=== PATIENT | female | born 1995 | race Caucasian/White ===

== ENCOUNTER 2023-09-02 13:09 | Emergency (ER) | payer OTHER ==
[2023-09-02 13:32] VITALS: BP 154/101; O2SAT 99
[2023-09-02 14:05] LABS: BASOPHILS # (AUTO) 0.1 10^3/uL (0.0-0.1); BASOPHILS % (AUTO) 1.1 %; EOSINOPHILS % (AUTO) 0.5 %; HCT - HEMATOCRIT 41.6 % (37.0-47.0); HGB - HEMOGLOBIN 13.9 g/dL (12.0-16.0); LYMPHOCYTES # (AUTO) 1.2 10^3/uL (1.5-3.5); LYMPHOCYTES % (AUTO) 18.5 %; MEAN CORPUSCULAR HEMOGLOBIN 29.5 pg (27.0-31.0); MEAN CORPUSCULAR HGB CONC 33.4 g/dL (32.0-36.0); MEAN CORPUSCULAR VOLUME 88.3 fL (81.0-99.0); MEAN PLATELET VOLUME 12.5 fL (7.9-10.8); MONOCYTES # (AUTO) 0.4 10^3/uL (0.0-1.0); MONOCYTES % (AUTO) 5.8 %; NEUTROPHILS # (AUTO) 4.8 10^3/uL (1.5-6.6); NEUTROPHILS % (AUTO) 73.9 %; PLT - PLATELET COUNT 244 10^3/uL (130-450); RED BLOOD COUNT 4.71 10^6/uL (4.20-5.40); RED CELL DISTRIBUTION WIDTH 12.1 % (12.0-15.0); WHITE BLOOD COUNT 6.4 x10^3/uL (4.8-10.8)
[2023-09-02 14:24] LABS: ALBUMIN 5.2 g/dL (3.2-5.5); ALBUMIN/GLOBULIN RATIO 1.9 (1.0-2.2); ALKALINE PHOSPHATASE 48 IU/L (42-121); ALT ALANINE AMINOTRANSFERASE 13 IU/L (10-60); AST ASPARTATE AMINOTRANSFERASE 17 IU/L (10-42); BILIRUBIN,TOTAL 0.7 mg/dL (0.2-1.0); BUN - BLOOD UREA NITROGEN 12 mg/dL (6-20); CALCIUM 9.9 mg/dL (8.5-10.3); CARBON DIOXIDE - CO2 24 mmol/L (21-32); CHLORIDE 104 mmol/L (101-111); CREATININE 0.7 mg/dL (0.6-1.3); GFR - MDRD 101 (>89); GLUCOSE 87 mg/dL (74-104); LIPASE 10 U/L (11-82); POTASSIUM 3.6 mmol/L (3.5-4.5); SODIUM 138 mmol/L (135-145); TOTAL PROTEIN 7.9 g/dL (6.4-8.9)
[2023-09-02 14:25] LABS: TROPONIN I HIGH SENSITIVITY < 2.3 ng/L (2.3-14.8)
--- NOTE | 2023-09-02 14:32 | XRAY Report ---
PROCEDURE: Chest 1 View X-Ray INDICATIONS: Chest Pain TECHNIQUE: One view of the chest was acquired. COMPARISON: None. FINDINGS: Surgical changes and devices: None. Lungs and pleura: No pleural effusions or pneumothorax. Lungs are clear. Mediastinum: Mediastinal contours appear normal. Heart size is normal. Bones and chest wall: No suspicious bony lesions. Overlying soft tissues appear unremarkable. IMPRESSION: No acute cardiopulmonary process. Reviewed by: Ger Wallace on 09/02/2023 2:30 PM PDT Approved by: Ger Wallace on 09/02/2023 2:30 PM PDT Station ID: [id number]
--- NOTE | 2023-09-02 14:57 | ED Physician Documentation ---
PD HPI CHEST PAIN - Stated complaint Stated Complaint: CP/HEART FLUTTERS - Chief complaint Chief Complaint: Cardiac - History obtained from History obtained from: Patient - Additional information Additional information: Sharp CP at R costochondral joint. Started while picking something up while bending 2 days ago and persistent. Worse with deep breathing. No soa per se. No leg pain, swelling, ocp use, travel or fhx early cad. PD PAST MEDICAL HISTORY - Allergies Allergies/Adverse Reactions: Allergies Allergy/AdvReac Type Severity Reaction Status Date / Time No Known Drug Allergies Allergy Verified 09/02/23 13:30 PD ED PE NORMAL - Vitals Vital signs reviewed: Yes - General General: Alert and oriented X 3, No acute distress - Neck Neck: Supple, no meningeal sign - Cardiac Cardiac: RRR, No murmur, Other (reproducible ttp R upper costochondral joints.) - Respiratory Respiratory: No respiratory distress, Clear bilaterally - Abdomen Abdomen: Non tender - Extremities Extremities: No edema, No calf tenderness / cord - Neuro Neuro: Alert and oriented X 3, Normal speech - Psych Psych: Normal affect Results - Vitals Vitals: Vital Signs - 24 hr 09/02/23 13:27 Temperature 37.1 C Heart Rate 78 Respiratory 18 Rate Blood Pressure 154/101 H O2 Saturation 99 Oxygen O2 Source Room air - EKG (time done) 1331 EKG releavant findings:: EKG personally interpreted by author of this note. Relevant findings are: Rate: Rate (enter#) (71) Rhythm: NSR [place]: Normal Intervals: Normal CT QRS: Normal Ischemia: Normal ST segments - Labs Labs: Laboratory Tests 09/02/23 09/02/23 09/02/23 14:00 14:00 14:00 WBC 6.4 RBC 4.71 Hgb 13.9 Hct 41.6 MCV 88.3 MCH 29.5 MCHC 33.4 RDW 12.1 Plt Count 244 MPV 12.5 H Neut # (Auto) 4.8 Lymph # (Auto) 1.2 L [place] # (Auto) 0.4 Eos # (Auto) 0.0 Baso # (Auto) 0.1 Absolute Nucleated RBC 0.00 Nucleated RBC % 0.0 D-Dimer < 200.0 L Sodium 138 Potassium 3.6 Chloride 104 Carbon Dioxide 24 Anion Gap 10.0 BUN 12 Creatinine 0.7 Estimated GFR (MDRD) 101 Glucose 87 Calcium 9.9 Total Bilirubin 0.7 AST 17 ALT 13 Alkaline Phosphatase 48 Troponin I High Sens < 2.3 L Total Protein 7.9 Albumin 5.2 Globulin 2.7 Albumin/Globulin Ratio 1.9 Lipase 10 L PD Medical Decision Making - ED course ED course: Heart score 0, PERC negative but had D-dimer ordered at triage which was negative as well. CBC and CMP normal with negative troponin. Clinically this is consistent with costochondritis and NSAID use was encouraged. Departure - Departure Disposition: 01 Home, Self Care Clinical Impression: Costochondritis, acute Condition: Good Record reviewed to determine appropriate education?: Yes Instructions: ED Chest Pain Costochondritis Comments: Motrin or aleve per package instructions for pain. Return if worse, followup tih you primary MD in 1 week. Testing included normal EKG, chest xray, d-dimer (screen for clots), troponin (screen for heart attack). Forms: PCP List Discharge Date/Time: 09/02/23 15:12
== END 2023-09-02 15:12 | disposition home or self-care (01) ==
LOC: ED 13:09
DX: M94.0 Chondrocostal junction syndrome [Tietze] (principal)
CPT/HCPCS: 36415; 80053; 83690; 84484; 85025; 85379; 93005; 99283; 99284

== ENCOUNTER 2023-12-09 12:54 | Outpatient (CLI) | payer OTHER ==
[2023-12-09 13:41] LABS: THYROID STIMULATING HORMONE 4.39 uIU/mL (0.34-5.60)
== END 2023-12-09 12:55 | disposition home or self-care (01) ==
LOC: LAB 12:54
PROVIDERS: ATTEND Nurse Practitioner
DX: E03.9 Hypothyroidism, unspecified (principal)
CPT/HCPCS: 36415; 84439; 84443; 84481

== ENCOUNTER 2023-12-30 13:19 | Outpatient (CLI) | payer OTHER ==
--- NOTE | 2023-12-30 15:41 | Ultrasound Report ---
PROCEDURE: Pelvic w/Transvaginal INDICATIONS: MENORRHAGIA TECHNIQUE: Real-time scanning was performed of the pelvic organs, with image documentation. Additional endovagi nal scanning was necessary due to incomplete visualization of the adnexal and endometrial structures by transabdominal scanning. COMPARISON: None. FINDINGS: Uterus: Uterus is anteverted and normal in size at 8.9 x 3.4 x 4.9 cm. The myometrium is homogeneou s. The endometrium measures 12.6 mm in combined thickness. Ovaries: The right ovary measures 4.2 x 2.4 x 2.1 cm, with a calculated ovarian volume of 10.8 cc. The left ovary measures 3.6 x 1.8 x 1.8 cm, with a calculated ovarian volume of 6.2 cc. The ovaries have a normal sonographic appearance. Less than 12 follicles can be seen in each ovary. No adnexal masses are seen. No cystic lesions measuring greater than 3 cm. Simple cyst in the right ovary measur ing 2.2 x 1.5 x 1.9 cm. Other: No pathologic free abdominal or pelvic fluid. IMPRESSION: Normal sonographic appearance of the uterus and endometrial thickness. Normal sonographic appearance the bilateral ovaries. Reviewed by: Elle Herrera MD on 12/30/2023 3:40 PM PST Approved by: Elle Herrera MD on 12/30/2023 3:40 PM PST Station ID: [id number]
== END 2023-12-30 13:20 | disposition home or self-care (01) ==
LOC: DI 13:19
PROVIDERS: ATTEND Nurse Practitioner
DX: N92.0 Excessive and frequent menstruation with regular cycle (principal)

== ENCOUNTER 2024-02-02 11:14 | Outpatient (CLI) | payer OTHER ==
--- NOTE | 2024-02-02 20:47 | Ultrasound Report ---
PROCEDURE: OB 1st Trimester w/TV INDICATIONS: POSITIVE TEST OUTSIDE/PRIOR DATING DATA: Last menstrual period (LMP): 12/02/2023. LMP-based estimated date of delivery (MONA): 09/07/2024. First dating scan (date and location): 02/02/2024. Estimated date of delivery (MONA) from first dating scan: 09/25/2024. TECHNIQUE: Real-time scanning was performed of the fetus and maternal pelvic organs, with image documentation. Endovaginal scanning was also performed to better visualize the fetus and maternal ovaries. COMPARISON: None. FINDINGS: Intrauterine gestational sac present. Mean gestational sac diameter: 1.6 cm, 6 weeks and 3 days [place]-rump length: 0.5 cm, 6 weeks and 2 days A yolk sac is present measuring 0.2 cm Heart rate: 126 bpm. Other: No perigestational fluid collection Measurement variability in dating: +/- 4 weeks by LMP, +/- 7 days by mean sac diameter (use before 6 weeks gestation if crown-rump length not able to be measured), +/- 5 days by crown-rump length (6-12 weeks gestation). Maternal organs: Ovaries appear within normal limits. Right corpus luteal cyst measuring 1 x 0.9 x 1 cm. IMPRESSION: Single living intrauterine . Estimated gestational age based on today's ultrasound is 6 week s and 2 days. Reviewed by: Brian Aldrich MD on 02/02/2024 8:46 PM PDT Approved by: Brian Aldrich MD on 02/02/2024 8:46 PM PDT Station ID: [id number]
== END 2024-02-02 11:15 | disposition home or self-care (01) ==
LOC: DI 11:14
PROVIDERS: ATTEND Nurse Practitioner
DX: Z34.91 Encounter for supervision of normal pregnancy, unspecified, first trimester (principal)

== ENCOUNTER 2024-02-25 08:00 | Outpatient (CLI) | payer OTHER ==
[2024-02-25 18:57] LABS: CHLAMYDIA TRACHOMATIS DNA NEGATIVE (NEGATIVE); NEISSERIA GONORRHOEAE DNA NEGATIVE (NEGATIVE); TRICHOMONAS VAGINALIS DNA NEGATIVE (NEGATIVE)
== END 2024-02-25 23:59 | disposition home or self-care (01) ==
LOC: LAB.WC 08:00
PROVIDERS: ATTEND Nurse Practitioner
DX: Z11.3 Encounter for screening for infections with a predominantly sexual mode of transmission (principal)
CPT/HCPCS: 87491; 87591; 87661

== ENCOUNTER 2024-03-07 12:54 | Outpatient (CLI) | payer OTHER ==
[2024-03-07 14:09] LABS: THYROID STIMULATING HORMONE 3.81 uIU/mL (0.34-5.60)
== END 2024-03-07 12:55 ==
LOC: LAB 12:54
PROVIDERS: ATTEND Nurse Practitioner
DX: E03.9 Hypothyroidism, unspecified (principal)
CPT/HCPCS: 36415; 84443

== ENCOUNTER 2024-03-18 18:40 | Outpatient (CLI) | payer OTHER | END 2024-03-18 18:41 | disposition home or self-care (01) | LOC: LAB 18:40 | PROVIDERS: ATTEND Nurse Practitioner | DX: Z34.90 Encounter for supervision of normal pregnancy, unspecified, unspecified trimester (principal) ==

== ENCOUNTER 2024-04-09 16:40 | Outpatient (CLI) | payer OTHER ==
[2024-04-09 17:40] LABS: THYROID STIMULATING HORMONE 3.95 uIU/mL (0.34-5.60)
== END 2024-04-09 16:41 | disposition home or self-care (01) ==
LOC: LAB 16:40
PROVIDERS: ATTEND Nurse Practitioner
DX: E03.9 Hypothyroidism, unspecified (principal)
CPT/HCPCS: 36415; 84443

== ENCOUNTER 2024-05-10 17:35 | Outpatient (CLI) | payer OTHER ==
[2024-05-10 18:16] LABS: THYROID STIMULATING HORMONE 1.77 uIU/mL (0.34-5.60)
== END 2024-05-10 17:36 | disposition home or self-care (01) ==
LOC: LAB 17:35
PROVIDERS: ATTEND Obstetrics & Gynecology
DX: O99.282 Endocrine, nutritional and metabolic diseases complicating pregnancy, second trimester (principal); E06.3 Autoimmune thyroiditis; O09.892 Supervision of other high risk pregnancies, second trimester
CPT/HCPCS: 36415; 84439; 84443

== ENCOUNTER 2024-06-21 12:23 | Outpatient (CLI) | payer OTHER ==
[2024-06-21 13:39] LABS: HCT - HEMATOCRIT 35.6 % (37.0-47.0); HGB - HEMOGLOBIN 11.9 g/dL (12.0-16.0); MEAN CORPUSCULAR HEMOGLOBIN 30.4 pg (27.0-31.0); MEAN CORPUSCULAR HGB CONC 33.4 g/dL (32.0-36.0); MEAN CORPUSCULAR VOLUME 90.8 fL (81.0-99.0); PLT - PLATELET COUNT 162 10^3/uL (130-450); RED BLOOD COUNT 3.92 10^6/uL (4.20-5.40); RED CELL DISTRIBUTION WIDTH 13.1 % (12.0-15.0); WHITE BLOOD COUNT 9.5 x10^3/uL (4.8-10.8)
[2024-06-21 14:08] LABS: THYROID STIMULATING HORMONE 1.17 uIU/mL (0.34-5.60)
== END 2024-06-21 12:24 | disposition home or self-care (01) ==
LOC: LAB 12:23
PROVIDERS: ATTEND Obstetrics & Gynecology
DX: O09.892 Supervision of other high risk pregnancies, second trimester (principal); O99.282 Endocrine, nutritional and metabolic diseases complicating pregnancy, second trimester; E06.3 Autoimmune thyroiditis
CPT/HCPCS: 36415; 82950; 84439; 84443; 85027; 86592

== ENCOUNTER 2024-08-03 15:24 | Outpatient (CLI) | payer OTHER ==
--- NOTE | 2024-08-06 00:03 | Ultrasound Report ---
PROCEDURE: OB Follow up INDICATIONS: SUPERVISION OF OUTSIDE/PRIOR DATING DATA: Last menstrual period (LMP): 12/02/2023. LMP-based estimated date of delivery (MONA): 09/07/2024. First dating scan (date and location): 02/02/2024. Estimated date of delivery (MONA) from first dating scan: 09/25/2024. The below data below was generated using the working MONA of 09/25/2024 TECHNIQUE: Ultrasound of the gravid uterus was performed and recorded. COMPARISON: None. FINDINGS: General: A single live intrauterine gestation is present. Presentation: Vertex Placenta: Placental position is fundal without previa. Amniotic fluid index: 10.6 cm, within normal limits for gestational age. heart rate: 157 beats per minute. Maternal cervical canal: 3.7 cm long; normal length is 2.5 cm or more. biometrics: Biparietal diameter: 7.9 cm, 32 week 0 day, 28.9 percentile Head circumference: 29.62 cm, 32 week 2 day, 12.5% Abdominal circumference: 27.7 cm, 31 week 6 day, 31% Femur length: 6.2 cm, 32 week 1 day, 30% Estimated gestational age by working dates: 32 week 3 day Composite gestational age by current ultrasound: 32 week 1 day Estimated weight and percentile: 1879.4 g, 26.6% Measurement variability in biometric dating: +/- 10 days from 12-20 weeks gestation, +/- 2 weeks from 20-30 weeks gestation, +/- 3 weeks at 30 weeks gestation or more. Other: Not applicable. IMPRESSION: Single live intrauterine consistent with 32 week 3 day gestation by current ultrasound Reviewed by: Shivam Braxton MD on 08/05/2024 11:02 PM SONYA Approved by: Shivam Braxton MD on 08/05/2024 11:02 PM SONYA Station ID: [id number]
== END 2024-08-03 15:25 | disposition home or self-care (01) ==
LOC: DI 15:24
PROVIDERS: ATTEND Obstetrics & Gynecology
DX: O09.893 Supervision of other high risk pregnancies, third trimester (principal); O35.9XX0 Maternal care for (suspected) fetal abnormality and damage, unspecified, not applicable or unspecified; Z3A.32 32 weeks gestation of pregnancy

== ENCOUNTER 2024-08-26 14:50 | Observation (INO) ==
[2024-08-26 15:30] LABS: BASOPHILS # (AUTO) 0.1 10^3/uL (0.0-0.1); BASOPHILS % (AUTO) 0.5 %; EOSINOPHILS % (AUTO) 0.3 %; HGB - HEMOGLOBIN 12.3 g/dL (12.0-16.0); LYMPHOCYTES # (AUTO) 1.8 10^3/uL (1.5-3.5); LYMPHOCYTES % (AUTO) 16.2 %; MEAN CORPUSCULAR HEMOGLOBIN 30.4 pg (27.0-31.0); MEAN CORPUSCULAR HGB CONC 34.2 g/dL (32.0-36.0); MEAN CORPUSCULAR VOLUME 89.1 fL (81.0-99.0); MEAN PLATELET VOLUME 14.2 fL (7.9-10.8); MONOCYTES # (AUTO) 0.7 10^3/uL (0.0-1.0); MONOCYTES % (AUTO) 5.9 %; NEUTROPHILS # (AUTO) 8.3 10^3/uL (1.5-6.6); NEUTROPHILS % (AUTO) 76.1 %; PLT - PLATELET COUNT 169 10^3/uL (130-450); RED BLOOD COUNT 4.04 10^6/uL (4.20-5.40); RED CELL DISTRIBUTION WIDTH 13.3 % (12.0-15.0)
[2024-08-26 15:49] LABS: SLIDE REVIEW? Indicated
[2024-08-26 16:00] LABS: PROTEIN/CREATININE RATIO,URINE 1.1 (<=0.2)
[2024-08-26 16:05] LABS: THYROID STIMULATING HORMONE 3.29 uIU/mL (0.34-5.60)
[2024-08-26 16:13] LABS: ALBUMIN 3.7 g/dL (3.2-5.5); ALBUMIN/GLOBULIN RATIO 1.3 (1.0-2.2); BILIRUBIN,TOTAL 0.4 mg/dL (0.2-1.0); CALCIUM 9.3 mg/dL (8.5-10.3); CREATININE 0.5 mg/dL (0.6-1.3); TOTAL PROTEIN 6.6 g/dL (6.4-8.9); URIC ACID 5.4 mg/dL (2.3-6.6)
[2024-08-26 16:36] LABS: PLATELET ESTIMATE, MANUAL NORMAL (130-450,000) (NORMAL); PLATELET MORPHOLOGY NORMAL APPEARANCE (NORMAL); RBC MORPHOLOGY (MULTIPLE) NORMAL APPEARANCE (NORMAL)
[2024-08-26] MEDS ORDERED: OXYTOCIN 10 UNIT/ML VIAL IM PRN (16:47)
[2024-08-26] MEDS ORDERED: lidocaine 1% 20 ML MDV ID PRN (16:47)
[2024-08-26] MEDS ORDERED: LABETALOL 20 MG/4 ML SYRINGE IVP PRN ×3 (16:47)
[2024-08-26] MEDS ORDERED: LACTATED RINGERS 1,000 ML IV PRN (16:47)
[2024-08-26] MEDS ORDERED: miSOPROStoL 200 MCG TABLET BC PRN (16:47)
[2024-08-26] MEDS ORDERED: hydrALAZINE INJ 20 MG/ML VIAL IVP PRN ×2 (16:47)
[2024-08-26] MEDS ORDERED: fentaNYL 100 MCG/2 ML VIAL IVP PRN (16:47)
[2024-08-26] MEDS ORDERED: OXYTOCIN/SODIUM CHLORIDE 500 ML IV PRN (16:47)
[2024-08-26] MEDS ORDERED: CARBOPROST TROMETHAMINE 250 MCG/ML VIAL IM PRN (16:47)
[2024-08-26] MEDS ORDERED: TERBUTALINE 1 MG/ML VIAL SUBQ PRN (16:47)
[2024-08-26] MEDS ORDERED: miSOPROStoL 200 MCG TABLET PR PRN (16:47)
[2024-08-26] MEDS ORDERED: NIFEdipine 10 MG CAPSULE PO PRN (16:47)
[2024-08-26] MEDS ORDERED: SODIUM CHLORIDE FLUSH 0.9% 10 ML SYRINGE IVP PRN (16:47)
[2024-08-26] MEDS ORDERED: TRANEXAMIC ACID IN NACL 1,000 MG/100 ML BAG IV PRN (16:47)
[2024-08-26] MEDS ORDERED: ACETAMINOPHEN 500 MG TABLET PO PRN (16:52)
[2024-08-26 16:56] VITALS: BP 145/85
[2024-08-26] MEDS ORDERED: METOCLOPRAMIDE 10 MG/2 ML VIAL IVP PRN (16:57)
[2024-08-26] MEDS ORDERED: DOCUSATE SODIUM 100 MG CAPSULE PO PRN (16:57)
[2024-08-26] MEDS ORDERED: METOCLOPRAMIDE 10 MG TABLET PO PRN (16:57)
[2024-08-26] MEDS ORDERED: CALCIUM CARBONATE CHEW 500 MG TABLET PO PRN (16:57)
[2024-08-26] MEDS ORDERED: diphenhydrAMINE INJ 50 MG/ML VIAL IVP PRN (16:57)
[2024-08-26] MEDS ORDERED: ONDANSETRON ODT 4 MG TABLET PO PRN (16:57)
--- NOTE | 2024-08-26 17:12 | HISTORY & PHYSICAL EXAMINATION ---
Admit History Visit Reason Visit Reason: Other (presents with elevated bps in clinic, swelling. 35w5d.) : 1 Care: positive [facility] Risk/History: positive Pre-eclampsia (just starting today) and Other (hypothyroid on levothyroxine. 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 echo 05/25 normal) Smoking Status: Never smoker Mother's Labs Mother's Blood Type: positive O Mother's RH: positive Positive GBS: positive Other (collect today) Rubella Status: positive Immune HPI Diagnosis/Indication for NST: Gestational Hypertension NST Procedure NST Procedure: NST is reactive with at least 2 15 x 51 beat acels in 20 minutes. moderate variability. baseline 140, obsessional scattered carrot decels. Results and Plan Findings/Impression: reactive NST Meds/Allgy Home Medications Ambulatory Orders Medication Instructions Recorded Confirmed [id number] 400 mcg-om3 35 mg-dha 25 1 tab PO DAILY 08/26/24 08/26/24 mg-epa 5 mg-fish oil chewable tablet levothyroxine 100 mcg tablet 100 mcg PO DAILY 08/26/24 08/26/24 (Euthyrox) Allergies Allergies Allergy/AdvReac Type Severity Reaction Status Date / Time No Known Drug Allergies Allergy Verified 08/26/24 16:57 Physical Abdominal Exam Vital Signs: see RN notes Contraction Frequency (min/apart): very irregular. Contraction Intensity: positive Mild Uterine Resting Tone: positive Soft Monitoring Heart Rate Baseline: 140 Strip Review: positive Category I Vaginal Exam Membranes: positive Membranes intact Dilation (in cm): deferred Speculum Exam Speculum Exam Performed: positive No Plan for Labor Plan For Labor I expect patient to be DC'd or transferred within 96 hours.: Yes Review of Systems Constitutional Reports: Change in sleep pattern; Denies: Fever or Chills Eyes Denies: Blurry vision or Floaters Cardiovascular Reports: swelling of feet/ankles; Denies: Irregular heart rate or shortness of breath with exertion Respiratory Denies: Shortness of breath Gastrointestinal Reports: Vomiting; Denies: Abdominal pain or Nausea Genitourinary Denies: Blood in urine or Vaginal bleeding Integumentary/Breast Denies: Rash or Itching Neurological Denies: Headache, General weakness or Focal weakness PFSH Social History Social History Smoking Status: Never smoker Do you dip or chew tobacco?: No Patient requests smoking cessation consult: No Initiate information on smoking cessation: No Do you feel safe in your home environment?: Yes Suffered physical, verbal, emotional, or financial abuse?: No Conclusion/Plan Problem List (1) with 35 completed weeks gestation: (2) Pre-eclampsia affecting , antepartum: Plan admit for observation and watch for severe features. meets criteria for preeclampsia by bp and urine protein. no severe features at this time. other labs normal. No symptoms of severe features. will monitor baby given some variable decels. Do ultrasound today to check growth and fluid. recheck labs in am. For now, hope to be able to wait for delivery until 37 weeks but if she develops severe features will start magnesium seizure prophylaxis and start induction process if she seems she will deliver after 36 weeks. Otherwise, transfer to appropriate facility for baby. collect GBS today. Lab Results Lab results reviewed: Yes 08/26/24 15:17 08/26/24 15:17 Other Lab Results: urine protein creatinine ratio is 1.1 Exam Physical Exam General Appearance: positive No acute distress and Alert Respiratory: positive No respiratory distress Cardiovascular: positive Regular rate & rhythm Abdomen: positive Non-tender Skin: positive Color nml Extremities: positive Pedal edema (to mid calf); negative Calf tenderness or Anita's sign/cords Neurologic/Psychiatric: positive Oriented x3
[2024-08-26 18:21] LABS: BILIRUBIN,URINE NEGATIVE (NEGATIVE); GLUCOSE, URINE (UA) NEGATIVE (NEGATIVE); KETONES,URINE (UA) 15 mg/dL (NEGATIVE); LEUKOCYTE ESTERASE, URINE NEGATIVE (NEGATIVE); NITRITE,URINE NEGATIVE (NEGATIVE); OCCULT BLOOD,URINE NEGATIVE (NEGATIVE); PROTEIN,URINE TRACE mg/dL (NEGATIVE); UROBILINOGEN,URINE 0.2 (NORMAL) E.U./dL (NORMAL)
[2024-08-26 18:23] LABS: CLARITY,URINE CLEAR (CLEAR)
[2024-08-26] MEDS: ENOXAPARIN 40 MG/0.4 ML SYRINGE SUBQ SCH (23:09)
[2024-08-26] MEDS: SODIUM CHLORIDE FLUSH 0.9% 10 ML SYRINGE IVP SCH (23:12)
--- NOTE | 2024-08-26 23:27 | Ultrasound Report ---
PROCEDURE: US OB Follow up INDICATIONS: preeclampsia, check growth and fluid. 35 w 5 d OUTSIDE/PRIOR DATING DATA: Last menstrual period (LMP): 12/02/2023. LMP-based estimated date of delivery (MONA): 09/07/2024. First dating scan (date and location): 02/02/2024. Estimated date of delivery (MONA) from first dating scan: 09/25/2024. The below data below was generated using the working MONA of 09/25/2024 TECHNIQUE: Real-time scanning was performed of the fetus, with image documentation and biometric measurements. Endovaginal scanning: Not performed. COMPARISON: 02/02/2024, 08/03/2024 FINDINGS: General: A single living intrauterine gestation is present. Presentation: Vertex Placenta: Placental position is fundal posterior, without previa. Amniotic fluid index: 13.5 cm, 46.2% and is within normal limits for gestational age. heart rate: 140 beats per minute. Maternal cervical canal: Not well seen. biometrics: Biparietal diameter: 8.56 cm, 34 weeks, 4 days, 22.6%. Head circumference: 32.29 cm, 36 weeks, 3 days, 36.8% Abdominal circumference: 30.39 cm, 34 weeks, 2 days, 21.0% Femur length: 6.65 cm, 34 weeks, 2 days, 11.8% Estimated gestational age from initial scan: 35 weeks, 5 days Composite gestational age from present scan: 34 weeks, 6 days Estimated weight and percentile: 2457.5 g, 20% Measurement variability in biometric dating: +/- 10 days from 12-20 weeks gestation, +/- 2 weeks from 20-30 weeks gestation, +/- 3 weeks at 30 weeks gestation or more. Other: Not applicable. IMPRESSION: 1. Single live intrauterine gestation with fetus in vertex presentation. heart rate is 140 bpm. Normal [place] at 13.5 cm and is at 46.2%. 2. Normal growth. Estimated weight is at 20%. Reviewed by: Estiven Bellamy MD on 08/26/2024 11:25 PM PDT Approved by: Estiven Bellamy MD on 08/26/2024 11:25 PM PDT Station ID: [id number]
[2024-08-27 06:19] LABS: BASOPHILS # (AUTO) 0.1 10^3/uL (0.0-0.1); HCT - HEMATOCRIT 34.2 % (37.0-47.0); HGB - HEMOGLOBIN 11.3 g/dL (12.0-16.0); LYMPHOCYTES # (AUTO) 1.6 10^3/uL (1.5-3.5); MEAN CORPUSCULAR HEMOGLOBIN 29.6 pg (27.0-31.0); MEAN CORPUSCULAR VOLUME 89.5 fL (81.0-99.0); MONOCYTES # (AUTO) 0.6 10^3/uL (0.0-1.0); MONOCYTES % (AUTO) 7.5 %; NEUTROPHILS # (AUTO) 5.5 10^3/uL (1.5-6.6); PLT - PLATELET COUNT 147 10^3/uL (130-450); RED BLOOD COUNT 3.82 10^6/uL (4.20-5.40); RED CELL DISTRIBUTION WIDTH 13.2 % (12.0-15.0)
[2024-08-27 06:36] LABS: LYMPHOCYTES % (AUTO) 21.2 %; NEUTROPHILS % (AUTO) 70.6 %; WHITE BLOOD COUNT 7.3 x10^3/uL (4.8-10.8)
[2024-08-27 06:39] LABS: ALBUMIN 3.4 g/dL (3.2-5.5); ALBUMIN/GLOBULIN RATIO 1.2 (1.0-2.2); BILIRUBIN,TOTAL 0.3 mg/dL (0.2-1.0); CALCIUM 8.8 mg/dL (8.5-10.3); CREATININE 0.5 mg/dL (0.6-1.3); TOTAL PROTEIN 6.2 g/dL (6.4-8.9)
[2024-08-27] MEDS ORDERED: ENOXAPARIN 40 MG/0.4 ML SYRINGE SUBQ SCH (09:00)
[2024-08-27] MEDS: LEVOTHYROXINE 100 MCG TABLET PO SCH (10:33)
[2024-08-27] MEDS: PRENATAL VITAMIN TABLET PO SCH (10:33)
[2024-08-27] MEDS: FAMOTIDINE 20 MG/2 ML VIAL IVP SCH (11:44)
[2024-08-27] MEDS: LABETALOL 100 MG TABLET PO SCH (11:57)
--- NOTE | 2024-08-27 15:03 | PHARMACY PROGRESS NOTE ---
Best Possible Medication History Admit Date and Time: 08/26/24 1650 BPM Statement: Per [employer] records and pt interview (PhT) As the person ultimately responsible for medication therapy, providers are able to order a medication from an existing home medication list in [facility] via the "Reconcile Routine" prior to Confirmation of that medication by support architect. Such practice is discouraged except when the physician, in their clinical judgment, deems that a medical need exists for a medication without regard to previous use.
--- NOTE | 2024-08-27 15:26 | Discharge Summary ---
Discharge Summary Admit Date: 08/26/24 Discharge Date: 08/27/24 Discharging Provider: Linnea Lopes MD Primary Care Provider: Loraine Pearce Code Status: Attempt Resuscitation DIAGNOSES Admission Diagnoses: prenancy at 35w6d with preeclampsia without severe features. Discharge Diagnoses with Status of Each Condition: same. stable HPI History of Present Illness: came to office for normal visit and had elevated bp. sent to [facility] for eval. HOSPITAL COURSE Hospital Course: observed overnight with multiple bp checks. did not escalate. US done and normal growth and fluid. NSTs reactive. started on labetolol 100 mg bid. ALLERGIES Allergies Allergy/AdvReac Type Severity Reaction Status Date / Time No Known Drug Allergies Allergy Verified 08/26/24 16:57 MEDICATIONS Ambulatory Orders Medication Instructions Recorded Confirmed [id number] 400 mcg-om3 35 mg-dha 25 1 tab PO DAILY 08/26/24 08/26/24 mg-epa 5 mg-fish oil chewable tablet levothyroxine 100 mcg tablet 100 mcg PO DAILY 08/26/24 08/26/24 (Euthyrox) labetalol 100 mg tablet 100 mg PO BID 30 days #60 tabs 08/27/24 PHYSICAL EXAM AT DISCHARGE General Appearance: positive No acute distress and Alert Respiratory: positive No respiratory distress Cardiovascular: positive Regular rate & rhythm Abdomen: positive Non-tender Skin: positive Color nml and No rash Extremities: positive Nml appearance and Pedal edema (small amount); negative Anita's sign/cords Neurologic/Psychiatric: positive Oriented x3 LABS 08/27/24 06:10 08/27/24 06:10 DIAGNOSTIC IMAGING Diagnostic Imaging Results: Final report reviewed (ultrasound with normal growth and fluid) FOLLOW UP Follow Up: Saturday for NST and bp check. TIME SPENT Time Spent in Discharge (Minutes): 20 Discharge Plan Discharge Patient Disposition: Home, Self Care Condition: Good Prescriptions: New labetalol 100 mg Tablet 100 mg PO BID 30 Days Qty: 60 0RF Continued levothyroxine [Euthyrox] 100 mcg tablet 100 mcg PO DAILY [id number] oil 400 mcg-35 mg -25 mg-5 mg tablet,chewable 1 tab PO DAILY Diet: Regular Health Concerns: worsening preeclampsia is a concern. What to look for discussed with patient. Assessment: stable preeclampsia without severe features. Plan of Treatment: Labetolol for BP management. Return to [facility] Saturday for BP check and NST on Saturday. Probable induction for next Saturday. Patient Instructions: Preeclampsia Follow-up Care: Linnea Lopes MD [Provider Admit Priv/Credential] -
[2024-08-27 15:48] VITALS: O2SAT 97
--- NOTE | 2024-08-29 15:45 | Labor Flowsheet ---
Labor Flowsheet Datetime Report Generated by CPN: 08/29/2024 15:45 Datetime: 08/29/2024 15:19 Frequency (min): irritability Pattern: Normal: <= 5 Contractions in 10 Minutes Resting Tone (Palpate): Relaxed ASSESSMENT A Monitor Mode: External US FHR Baseline Rate : 140 FHR Baseline Changes: No Baseline Change Variability: Moderate 6-25 bpm Accelerations: 15X15 Decelerations: None Datetime: 08/29/2024 14:47 I/O Interventions: Up to BR Datetime: 08/29/2024 14:30 Category: Category II Datetime: 08/29/2024 14:14 Patient Care Comments: EFM applied at 1404. Strip not registering in CPN due to admitting issue. RN at bedside monitoring tracing while central monitoring is not registering. Datetime: 08/27/2024 15:02 VITAL SIGNS NBP Sys/Lexi/Mean (mmHg): 145 : 80 : 95 Pulse: 58 LaborFlag: Antepartum Datetime: 08/27/2024 08:14 Duration (sec): 60 Datetime: 08/27/2024 07:49 Temperature (C): 36.7 Datetime: 08/27/2024 03:45 UTERINE ACTIVITY Monitor Mode: External Quality: Mild Datetime: 08/27/2024 03:27 Stage of : Antepartum Respirations: 18 SpO2 (%): 99 Temperature Route: Oral Datetime: 08/27/2024 03:20 PAIN Pain Scale: 0 Pain Presence: None/Denies Pain Type: N/A Pain Relief Measures: Comfort Measures MATERNAL ASSESSMENT Level of Consciousness: Alert Headache: Denies Nausea/Vomiting: Denies RUQ Epigastric Pain: Denies Patient Position/Activity: Right Tilt; Standing (Annotations: Up to void) Comfort Measures: Family Support Hygiene: Jodi Care Datetime: 08/26/2024 23:10 MEDICATIONS Medication Comments: Lovenox 40mg SubQ R thigh PATIENT CARE IV/Blood Work: IV Saline Locked (Annotations: IV SL flushed with 10ml normal saline) Medications: Reviewed Lovenox with patient. IV SL flushed; patent. Datetime: 08/26/2024 21:50 Communication Comments: K Rich US tech at BS to complete US for evaluation of growth and AFV I Datetime: 08/26/2024 20:51 Comments: Monitors off for rest; BPcks and FHR monitoring when pt is up to BR during the night per Dr Granadosin Datetime: 08/26/2024 20:44 Provider Reviewed Strip: No Strip Reviewed by: Dr Granadosin COMMUNICATION Communication: Call/Page Returned by Provider Notification Reason: Status Update; Status; Maternal Vital Sign Change Datetime: 08/26/2024 20:02 VAGINAL EXAM Membrane Status: Intact DTR's/Clonus: DTRs 2+; No Clonus TEACHING Instructional Method: Verbal; Patient Instructed; Verbalized Understanding Plan of Care: Plan of Care Discussed; Induction Unit Routine: Unit Personnel; Monitoring; Safety/Fall Risk Prevention; Diet/Nutrition Service s; Bathroom Privileges; Routine Time Outs; Medications Labor/Induction: Cervical Ripening; Induction; Activity Pain Management: PRN Medications; Comfort Measures PTL/PROM: Expected Outcomes Related: Maternal Physical Changes; Maternal Emotional Changes; Activity and Rest Datetime: 08/26/2024 16:16 Provider Notified (Name): Lopes Datetime: 08/26/2024 15:30 Contraction Comments: pt denies feeling contractions
== END 2024-08-27 15:15 | disposition home or self-care (01) ==
LOC: FBP 14:50 → WFO 14:50 → FBP 14:59
PROVIDERS: ADMIT Obstetrics & Gynecology; ATTEND Obstetrics & Gynecology

== ENCOUNTER 2024-09-04 19:52 | Observation (INO) ==
[2024-09-04] MEDS ORDERED: lidocaine 1% 20 ML MDV ID PRN (20:00)
[2024-09-04] MEDS ORDERED: miSOPROStoL 200 MCG TABLET BC PRN (20:00)
[2024-09-04] MEDS ORDERED: LACTATED RINGERS 1,000 ML IV PRN (20:00)
[2024-09-04] MEDS ORDERED: TERBUTALINE 1 MG/ML VIAL SUBQ PRN (20:00)
[2024-09-04] MEDS ORDERED: NIFEdipine 10 MG CAPSULE PO PRN (20:00)
[2024-09-04] MEDS ORDERED: CARBOPROST TROMETHAMINE 250 MCG/ML VIAL IM PRN (20:00)
[2024-09-04] MEDS ORDERED: OXYTOCIN 10 UNIT/ML VIAL IM PRN (20:00)
[2024-09-04] MEDS ORDERED: TRANEXAMIC ACID IN NACL 1,000 MG/100 ML BAG IV PRN (20:00)
[2024-09-04] MEDS ORDERED: SODIUM CHLORIDE FLUSH 0.9% 10 ML SYRINGE IVP SCH (20:00)
[2024-09-04] MEDS ORDERED: hydrALAZINE INJ 20 MG/ML VIAL IVP PRN (20:00)
[2024-09-04] MEDS ORDERED: fentaNYL 100 MCG/2 ML VIAL IVP PRN (20:00)
[2024-09-04] MEDS ORDERED: LABETALOL 20 MG/4 ML SYRINGE IVP PRN ×2 (20:00)
[2024-09-04] MEDS ORDERED: METHYLERGONOVINE 0.2 MG/ML VIAL IM PRN (20:00)
[2024-09-04] MEDS ORDERED: miSOPROStoL 200 MCG TABLET PR PRN (20:00)
[2024-09-04] MEDS: AMPICILLIN 2 GM in SODIUM CHLORIDE 0.9% MINIBAG 100 ML IV ONE (21:22)
[2024-09-04 21:23] LABS: BASOPHILS % (AUTO) 0.4 %; EOSINOPHILS # (AUTO) 0.1 10^3/uL (0.0-0.7); EOSINOPHILS % (AUTO) 0.6 %; HCT - HEMATOCRIT 34.4 % (37.0-47.0); HGB - HEMOGLOBIN 11.5 g/dL (12.0-16.0); LYMPHOCYTES # (AUTO) 1.4 10^3/uL (1.5-3.5); MEAN CORPUSCULAR HGB CONC 33.4 g/dL (32.0-36.0); MEAN CORPUSCULAR VOLUME 89.8 fL (81.0-99.0); MEAN PLATELET VOLUME 15.1 fL (7.9-10.8); MONOCYTES # (AUTO) 0.9 10^3/uL (0.0-1.0); NEUTROPHILS % (AUTO) 74.4 %; PLT - PLATELET COUNT 152 10^3/uL (130-450); RED BLOOD COUNT 3.83 10^6/uL (4.20-5.40); RED CELL DISTRIBUTION WIDTH 13.4 % (12.0-15.0); WHITE BLOOD COUNT 9.4 x10^3/uL (4.8-10.8)
[2024-09-04 21:42] LABS: ALBUMIN 3.5 g/dL (3.2-5.5); ALBUMIN/GLOBULIN RATIO 1.2 (1.0-2.2); BILIRUBIN,TOTAL 0.3 mg/dL (0.2-1.0); CALCIUM 9.2 mg/dL (8.5-10.3); CREATININE 0.4 mg/dL (0.6-1.3); TOTAL PROTEIN 6.4 g/dL (6.4-8.9)
[2024-09-04] MEDS: diphenhydrAMINE 25 MG CAPSULE PO PRN (21:51)
[2024-09-04] MEDS: miSOPROStoL 100 MCG TABLET PO SCH (22:50)
[2024-09-04] MEDS: LABETALOL 100 MG TABLET PO SCH (23:13)
[2024-09-05] MEDS: AMPICILLIN 1 GM in SODIUM CHLORIDE 0.9% MINIBAG 100 ML IV SCH (02:11)
[2024-09-05] MEDS: SODIUM CHLORIDE FLUSH 0.9% 10 ML SYRINGE IVP PRN (07:49)
[2024-09-05] MEDS: LABETALOL 20 MG/4 ML SYRINGE IVP PRN (08:35)
--- NOTE | 2024-09-05 08:41 | HISTORY & PHYSICAL EXAMINATION ---
Admit History Smoking Status: Never smoker HPI Current : Vital Signs Temperature 36.8 C 09/04/24 20:14 Pulse Rate 65 09/04/24 20:14 Respiratory Rate 18 09/04/24 20:14 Blood Pressure 147/89 H 09/04/24 20:14 Temperature 36.8 C 09/04/24 20:14 Pulse Rate 65 09/04/24 20:14 Respiratory Rate 18 09/04/24 20:14 Blood Pressure 147/89 H 09/04/24 20:14 NST Procedure NST Procedure: NST Procedure Start Time 15:28 Stop Time 16:23 Meds/Allgy Home Medications Ambulatory Orders Medication Instructions Recorded Confirmed [id number] 400 mcg-om3 35 mg-dha 25 1 tab PO DAILY 08/26/24 08/26/24 mg-epa 5 mg-fish oil chewable tablet levothyroxine 100 mcg tablet 100 mcg PO DAILY 08/26/24 08/26/24 (Euthyrox) Allergies Allergies Allergy/AdvReac Type Severity Reaction Status Date / Time seasonal Allergy Mild Respiratory Uncoded 09/03/24 13:23 PFSH Social History Social History Smoking Status: Never smoker Do you dip or chew tobacco?: No Patient requests smoking cessation consult: No Initiate information on smoking cessation: No Do you feel safe in your home environment?: Yes Suffered physical, verbal, emotional, or financial abuse?: No Physical Abdominal Exam Vital Signs: Temp Pulse Resp BP 36.8 C 65 18 147/89 H 09/04/24 20:14 09/04/24 20:14 09/04/24 20:14 09/04/24 20:14 Conclusion/Plan Lab Results 09/04/24 20:48 09/04/24 20:48
[2024-09-05] MEDS ORDERED: ROPIVACAINE 0.2% 200 MG/100 ML BAG EP ONE (09:00)
[2024-09-05] MEDS ORDERED: LIDOCAINE 2%-EPI 1:100000 20 ML MDV ONE (09:00)
[2024-09-05] MEDS ORDERED: ONDANSETRON 4 MG/2 ML VIAL ONE (09:34)
[2024-09-05] MEDS ORDERED: METOCLOPRAMIDE 10 MG/2 ML VIAL IVP PRN (09:56)
[2024-09-05] MEDS ORDERED: ePHEDrine 50 MG/ML VIAL IVP PRN (09:56)
[2024-09-05] MEDS ORDERED: diphenhydrAMINE INJ 50 MG/ML VIAL IVP PRN (09:56)
[2024-09-05] MEDS ORDERED: NALBUPHINE 10 MG/ML AMP IVP PRN (09:56)
[2024-09-05] MEDS ORDERED: NALOXONE 0.4 MG/ML VIAL IVP PRN ×2 (09:56→12:06)
[2024-09-05] MEDS ORDERED: ROPIVACAINE 0.2% 200 MG/100 ML BAG EP PRN (09:57)
[2024-09-05] MEDS ORDERED: LACTATED RINGERS 500 ML IV STA (10:07)
[2024-09-05] MEDS: LEVOTHYROXINE 100 MCG TABLET PO SCH (10:37)
--- NOTE | 2024-09-05 10:39 | HISTORY & PHYSICAL EXAMINATION ---
Admit History Smoking Status: Never smoker Other Maternal History Other Maternal History: Lorene is a 29 yo at 37w0d who is admitted for IOL for preeclampsia without severe features. On admission, denies PILLAI, vision changes, upper abdominal pain. Denies painful ctx, lof, vb. + FM. She has been taking labetalol 100mg BID which was started last admission, has taken her evening dose of her home med here tonight. Growth US on 08/26 with EFW 2457g, 20%tile. 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 05/10 and 06/21 TFTs normal. 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 Normal [facility] anatomy US and echo. -Growth scan 08/03 - EFW 26%tile -Weekly NSTs/GARRETT are scheduled for 36 weeks. Marginal cord insertion - growth US as noted above. FOB: Rodrigo Sanderson in [email or web address], will be deployed around time she gives . 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 First baby for both. together 7 yrs. From [place], [place]. 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 consistant w/ FISH and SNP microarray. echo 05/25 normal Covid: done 6 m ago, never had infection Flu: 07/29/24 FAS:Scheduled 05/11 at [facility] Had a 16wk US at [facility]- Pt states 78%ile. No consult notes yet for FAS done at [facility], pt reports f/u at 32 weeks recommended Placenta: Cord: 3VC GARRETT: normal EFW: 396g 50gm OGCT: 78 TDAP: 07/01/2024 Breast Pump: 07/01/2024 RPR NR 3rd trimester PLT 162 HCT 35.6 HGB 11.9 GBS: Contraception: Condoms PE: VS reviewed. Gen: NAD Chest: non labored respirations Abd: gravid, non tender Ext: trace LE edema SVE: fingertip, very hard to reach and posterior on admission Bedside US: cephalic presentation confirmed monitoring: FHTs: 130s bpm baseline, mod variability, + accel, occasional small variable decelerations Benavides: irregular Labs: reviewed A/P: 29 yo admitted for IOL for preeclampsia without severe features: - IOL started with PO misoprostol - GBS pos, will start antibiotic prophylaxis now - Rh+ - Rubella immune - Varicella immune - Pain management per her request. - Continue home dose of labetalol 100mg BID. Will monitor BPs and symptoms. We have discussed possible magnesium sulfate if severe features were to develop. Chelo Dodd MD HPI Current : Vital Signs Temperature 36.8 C 09/04/24 20:14 Pulse Rate 65 09/04/24 20:14 Respiratory Rate 18 09/04/24 20:14 Blood Pressure 147/89 H 09/04/24 20:14 Temperature 36.8 C 09/04/24 20:14 Pulse Rate 81 09/05/24 08:35 Respiratory Rate 18 09/04/24 20:14 Blood Pressure 170/106 H 09/05/24 08:35 NST Procedure NST Procedure: NST Procedure Start Time 15:28 Stop Time 16:23 Meds/Allgy Home Medications Ambulatory Orders Medication Instructions Recorded Confirmed [id number] 400 mcg-om3 35 mg-dha 25 1 tab PO DAILY 08/26/24 08/26/24 mg-epa 5 mg-fish oil chewable tablet levothyroxine 100 mcg tablet 100 mcg PO DAILY 08/26/24 08/26/24 (Euthyrox) Allergies Allergies Allergy/AdvReac Type Severity Reaction Status Date / Time seasonal Allergy Mild Respiratory Uncoded 09/03/24 13:23 [facility] Social History Social History Smoking Status: Never smoker Do you dip or chew tobacco?: No Patient requests smoking cessation consult: No Initiate information on smoking cessation: No Do you feel safe in your home environment?: Yes Suffered physical, verbal, emotional, or financial abuse?: No Physical Abdominal Exam Vital Signs: Temp Pulse Resp BP 36.8 C 81 18 170/106 H 09/04/24 20:14 09/05/24 08:35 09/04/24 20:14 09/05/24 08:35 Plan for Labor Plan For Labor I expect patient to be DC'd or transferred within 96 hours.: Yes Conclusion/Plan Lab Results 09/04/24 20:48 09/04/24 20:48
[2024-09-05] MEDS: OXYTOCIN/SODIUM CHLORIDE 500 ML IV PRN (11:13)
--- NOTE | 2024-09-05 11:34 | ANESTHESIA PROCEDURE NOTE ---
Pre-Anesthesia VS, & Labs Diagnosis Surgical Diagnosis:: labor induction Procedure Procedure: labor epidural Vitals Vital Signs: Temp Pulse Resp BP 36.8 C 81 18 170/106 H 09/04/24 20:14 09/05/24 08:35 09/04/24 20:14 09/05/24 08:35 NPO NPO: Other Is Patient ?: Yes Lab Results Current Lab Results: Laboratory Tests 09/04/24 20:48: WBC 9.4, RBC 3.83 L, Hgb 11.5 L, Hct 34.4 L, MCV 89.8, MCH 30.0, MCHC 33.4, RDW 13.4, Plt Count 152, MPV 15.1 H, Neut # (Auto) 7.0 H, Lymph # (Auto) 1.4 L, Nuckolls # (Auto) 0.9, Eos # (Auto) 0.1, Baso # (Auto) 0.0, Absolute Nucleated RBC 0.00, Nucleated RBC % 0.0, Sodium 135, Potassium 4.0, Chloride 105, Carbon Dioxide 22, Anion Gap 8.0, BUN 13, Creatinine 0.4 L, Estimated GFR (MDRD) 191, Glucose 109 H, Calcium 9.2, Total Bilirubin 0.3, AST 15, ALT 11, A lkaline Phosphatase 122 H, Total Protein 6.4, Albumin 3.5, Globulin 2.9, Albumin/Globulin Ratio 1.2, Blood Type O POSITIVE, Antibody Screen NEGATIVE 09/04/24 20:48 09/04/24 20:48 Meds/Allgy Home Medications Ambulatory Orders Medication Instructions Recorded Confirmed [id number] 400 mcg-om3 35 mg-dha 25 1 tab PO DAILY 08/26/24 08/26/24 mg-epa 5 mg-fish oil chewable tablet levothyroxine 100 mcg tablet 100 mcg PO DAILY 08/26/24 08/26/24 (Euthyrox) Allergies Allergies Allergy/AdvReac Type Severity Reaction Status Date / Time seasonal Allergy Mild Respiratory Uncoded 09/03/24 13:23 PFSH Social History Social History Smoking Status: Never smoker Do you dip or chew tobacco?: No Patient requests smoking cessation consult: No Initiate information on smoking cessation: No Do you feel safe in your home environment?: Yes Suffered physical, verbal, emotional, or financial abuse?: No Anesthesia Exam (Expanded) Exam General: Alert and Moderate distress Dental: WNL Mouth Opening: Greater than 4 Fingerbreadths Mallampati classification: I Thyromental Distance: greater than 6 cm Respiratory: Lungs clear Cardiovascular: Regular rate Plan Plan Anesthesia Type: Epidural Consent for Procedure(s) Verified and Reviewed: Yes Code Status: Attempt Resuscitation ASA Classification ASA classification: 2-Mild systemic disease Is this case an emergency?: No
--- NOTE | 2024-09-05 11:58 | DELIVERY NOTE ---
Delivery Note Labor Labor: positive Other (Induction with misoprostol) Infant Delivery Method Delivery Method: positive Spontaneous vaginal delivery Cervical Ripening Method Cervical Ripening Method: positive Misoprostil Presentation Presentation: positive ILIA - left occiput anterior Nuchal Cord Nuchal Cord: positive None Anesthetic Anesthetic: positive Other (epidural) Amniotic Fluid Description Amniotic Fluid Description: positive Clear Episiotomy Type Episiotomy Type: positive None Laceration Laceration: positive 1st degree and Labial (Right) Suture Suture Type: positive Vicryl Suture Size: positive 4-0 Delivery Outcome Delivery Outcome: positive Livebirth : positive Placed in direct skin contact with mother and Stimulated Grant sex: positive Female Cord Cord: positive Other (Small thin cord with several outpouchings noted. Placenta to be sent to pathology.) Placenta Placenta: positive Intact Estimated Blood Loss Estimated Blood Loss (in cc): 100 Post Delivery Events Post Delivery Events: positive No post delivery events Delivery Comments (Free Text/Narrative) Delivery Comments (Free Text/Narrative): I was called to the bedside for patient complete and ready to start pushing. She pushed with excellent effort. The anterior shoulder delivered easily with maternal effort and gentle downward pressure followed by the remainder of the body. The infant was placed on the mother's abdomen. After 60 sec the cord was clamped times two and cut. Cord blood collected. Pitocin was started. The placenta was delivered intact. Good uterine tone noted. Severe range BPs noted prior to delivery, however, Lorene made incredibly rapid change from 2cm to complete dilation after SROM. Suspect severe range blood pressures likely due in part to pain and rapid labor. She did receive 1 dose of IV labetalol 20mg and morning dose of oral labetalol 100mg. Will continue to monitor blood pressures closely here after delivery and if severe range BPs persist, will start magnesium suflate for seizure prophylaxis. Chelo Dodd MD
[2024-09-05] MEDS ORDERED: oxyCODONE 5 MG TABLET PO PRN (12:06)
[2024-09-05] MEDS ORDERED: OXYTOCIN/SODIUM CHLORIDE 500 ML IV PRN (12:06)
[2024-09-05] MEDS ORDERED: NIFEdipine 10 MG CAPSULE PO PRN (12:06)
[2024-09-05] MEDS ORDERED: SIMETHICONE CHEW 80 MG TABLET PO PRN (12:06)
[2024-09-05] MEDS ORDERED: WITCH HAZEL/GLYCERIN 1 PAD TOP PRN (12:06)
[2024-09-05] MEDS: ACETAMINOPHEN 500 MG TABLET PO PRN (12:44)
[2024-09-05] MEDS: IBUPROFEN 600 MG TABLET PO PRN (12:44)
[2024-09-05] MEDS: ONDANSETRON 4 MG/2 ML VIAL IVP PRN (13:40)
[2024-09-05] MEDS: PRENATAL VITAMIN TABLET PO SCH (17:27)
[2024-09-05 18:17] LABS: HCT - HEMATOCRIT 33.3 % (37.0-47.0); HGB - HEMOGLOBIN 11.3 g/dL (12.0-16.0); MEAN CORPUSCULAR HEMOGLOBIN 30.7 pg (27.0-31.0); MEAN CORPUSCULAR HGB CONC 33.9 g/dL (32.0-36.0); MEAN CORPUSCULAR VOLUME 90.5 fL (81.0-99.0); MEAN PLATELET VOLUME 13.8 fL (7.9-10.8); RED BLOOD COUNT 3.68 10^6/uL (4.20-5.40); RED CELL DISTRIBUTION WIDTH 13.3 % (12.0-15.0); WHITE BLOOD COUNT 14.3 x10^3/uL (4.8-10.8)
[2024-09-05 18:36] LABS: ALBUMIN 3.1 g/dL (3.2-5.5); ALBUMIN/GLOBULIN RATIO 1.2 (1.0-2.2); BILIRUBIN,TOTAL 0.2 mg/dL (0.2-1.0); CALCIUM 9.1 mg/dL (8.5-10.3); CREATININE 0.6 mg/dL (0.6-1.3); TOTAL PROTEIN 5.6 g/dL (6.4-8.9)
[2024-09-05] MEDS: DOCUSATE SODIUM 100 MG CAPSULE PO SCH (21:16)
[2024-09-06] MEDS: LABETALOL 100 MG TABLET PO ONE (10:58)
--- NOTE | 2024-09-06 11:07 | PROVIDER PROGRESS NOTE ---
Subjective Subjective Subjective: Lorene reports she is feeling great this morning. Pain is well controlled. She is ambulating and urinating without difficulty. Bleeding is light. She is breast feeding and supplementing with formula. Current Medications Current Medications Current Medications: Current Medications Generic Name Dose Route Start Last Admin Trade Name Freq PRN Reason Stop Dose Admin Acetaminophen 1,000 mg 09/05/24 12:06 09/05/24 21:15 Acetaminophen 500 Mg Tablet PO 1,000 mg Q8HR PRN Administration Mild Pain or Fever>38C(100.4F) Carboprost Tromethamine 250 mcg 09/04/24 20:00 Carboprost Tromethamine 250 Mcg/Ml Vial IM .ONCE PRN Hemorrhage Diphenhydramine HCl 25 mg 09/04/24 21:21 09/04/24 21:51 Diphenhydramine 25 Mg Capsule PO 25 mg Q4HR PRN Administration Insomnia Diphenhydramine HCl 12.5 - 25 mg 09/05/24 09:56 Diphenhydramine Inj 50 Mg/Ml Vial IVP Q6HR PRN ITCHING Docusate Sodium 100 mg 09/05/24 21:00 09/06/24 08:15 Docusate Sodium 100 Mg Capsule PO 100 mg BID NADINE Administration Ephedrine Sulfate 5 mg 09/05/24 09:56 Ephedrine 50 Mg/Ml Vial IVP Q5M PRN For SBP<100;give until SBP>100 Fentanyl 50 mcg 09/04/24 20:00 Fentanyl 100 Mcg/2 Ml Vial IVP Q1H PRN Severe Pain (score 7-10) Hydralazine HCl 5 - 10 mg 09/04/24 20:00 Hydralazine Inj 20 Mg/Ml Vial IVP Q20M PRN SBP> or= 160 OR DBP> or= 110 Protocol Ampicillin Sodium 1 gm/ Sodium 100 mls @ 200 mls/hr 09/05/24 00:00 09/05/24 07:45 Chloride IV Infused Q4H NADINE Infusion Lactated Ringer's 500 mls @ 999 mls/hr 09/04/24 20:00 Lr IV PRN PRN NEEDED PER PROVIDER ORDERS Oxytocin/Sodium Chloride 500 mls @ 999 mls/hr 09/04/24 20:00 09/05/24 11:13 Pitocin/Sodium Chloride IV 999 milliunit/min PRN PRN 999 mls/hr POST- HEMORR PREVENTION Administration Protocol 999 MILLIUNIT/MIN Tranexamic Acid 1,000 mg in 100 mls @ 600 mls/hr 09/04/24 20:00 Tranexamic 1,000 Mg/100ml-Nacl IV Q30M PRN EBL >1200mL and within 3hr Ropivacaine 200 mg in 100 mls @ 0 mls/hr 09/05/24 09:57 Naropin 0.2% EP PRN PRN PAIN Protocol Per Protocol Oxytocin/Sodium Chloride 500 mls @ 999 mls/hr 09/05/24 12:06 Pitocin/Sodium Chloride IV PRN PRN POST- HEMORR PREVENTION Protocol 999 MILLIUNIT/MIN Ibuprofen 600 mg 09/05/24 12:06 09/06/24 08:15 Ibuprofen 600 Mg Tablet PO 600 mg Q6HR PRN Administration Moderate Pain (Level 4-6) Labetalol HCl 20 mg 09/04/24 20:00 09/05/24 08:35 Labetalol 20 Mg/4 Ml Syringe IVP 20 mg .ONCE PRN Administration SBP> or= 160 OR DBP> or= 110 Protocol Labetalol HCl 20 - 40 mg 09/04/24 20:00 Labetalol 20 Mg/4 Ml Syringe IVP Q10M PRN SBP> or= 160 OR DBP> or= 110 Protocol Labetalol HCl 20 - 80 mg 09/04/24 20:00 Labetalol 20 Mg/4 Ml Syringe IVP Q10M PRN SBP> or= 160 OR DBP> or= 110 Protocol Labetalol HCl 200 mg 09/06/24 21:00 Labetalol 100 Mg Tablet PO BID NADINE Labetalol HCl 100 mg 09/06/24 11:00 09/06/24 10:58 Labetalol 100 Mg Tablet PO 09/06/24 11:01 100 mg ONCE ONE Administration Levothyroxine Sodium 100 mcg 09/05/24 09:00 09/06/24 08:15 Levothyroxine 100 Mcg Tablet PO 100 mcg DAILY NADINE Administration Lidocaine HCl 20 ml 09/04/24 20:00 Lidocaine 1% 20 Ml Mdv ID 09/07/24 20:00 .ONCE PRN PERINEAL REPAIR Methylergonovine Maleate 0.2 mg 09/04/24 20:00 Methylergonovine 0.2 Mg/Ml Vial IM .ONCE PRN Hemorrhage Metoclopramide HCl 10 mg 09/05/24 09:56 Metoclopramide 10 Mg/2 Ml Vial IVP Q6HR PRN Nausea / Vomiting Misoprostol 600 mcg 09/04/24 20:00 Misoprostol 200 Mcg Tablet BC .ONCE PRN Hemorrhage Misoprostol 800 mcg 09/04/24 20:00 Misoprostol 200 Mcg Tablet OH .ONCE PRN Hemorrhage Misoprostol 25 mcg 09/04/24 22:00 09/05/24 07:06 Misoprostol 100 Mcg Tablet PO 25 mcg Q4H NADINE Administration Nalbuphine HCl 2.5 - 5 mg 09/05/24 09:56 Nalbuphine 10 Mg/Ml Amp IVP Q4H PRN ITCHING Naloxone HCl 0.1 mg 09/05/24 09:56 Naloxone 0.4 Mg/Ml Vial IVP Q2M PRN RR<8 Naloxone HCl 0.4 mg 09/05/24 12:06 Naloxone 0.4 Mg/Ml Vial IVP .ONCE PRN Opioid Overdose Nifedipine 10 - 20 mg 09/04/24 20:00 Nifedipine 10 Mg Capsule PO Q20M PRN SBP> or= 160 OR DBP> or= 110 Protocol Nifedipine 10 - 20 mg 09/05/24 12:06 Nifedipine 10 Mg Capsule PO Q20M PRN SBP >=160 and/or DBP >=110 Protocol Ondansetron HCl 4 mg 09/05/24 09:56 09/05/24 13:40 Ondansetron 4 Mg/2 Ml Vial IVP 4 mg Q6HR PRN Administration Nausea / Vomiting Oxycodone HCl 5 mg 09/05/24 12:06 Oxycodone 5 Mg Tablet PO Q4HR PRN Severe Pain 6-10 Oxytocin 10 unit 09/04/24 20:00 Oxytocin 10 Unit/Ml Vial IM .ONCE PRN Step One if no IV access. Multivit/Folic Acid/Iron 1 tab 09/05/24 09:00 09/06/24 08:15 Vitamin Tablet PO 1 tab DAILY NADINE Administration Simethicone 80 mg 09/05/24 12:06 Simethicone Chew 80 Mg Tablet PO TID PRN Gas Sodium Chloride 10 ml 09/04/24 20:00 09/05/24 13:40 Sodium Chloride Flush 0.9% 10 Ml Syringe IVP 10 ml PRN PRN Administration NEEDED PER PROVIDER ORDERS Sodium Chloride 10 ml 09/04/24 20:00 Sodium Chloride Flush 0.9% 10 Ml Syringe IVP Q8H NADINE Terbutaline Sulfate 0.25 mg 09/04/24 20:00 Terbutaline 1 Mg/Ml Vial SUBQ .ONCE PRN Tachystole Witch Adele/Glycerin 1 pad 09/05/24 12:06 Witch Adele/Glycerin 1 Pad TOP PRN PRN ITCHING Objective Vital Signs/Intake & Output Vital Signs: Vital Signs x48h Temp Pulse Resp BP Pulse Ox 09/06/24 10:00 98.2 F 60 16 148/90 H 100 09/06/24 06:20 98.1 F 78 16 150/90 H Intake & Output: Intake & Output 09/04/24 09/05/24 09/06/24 09/07/24 05:59 05:59 05:59 05:59 Intake Total 200 / 200 100 / 100 Output Total 825 / 825 Balance 199 / 199 -725 / -725 Weight (kg) 172 lb Objective General Appearance: positive No acute distress Respiratory: positive No respiratory distress Abdomen: positive Non-tender and Other (fundus firm) Extremities: positive Pedal edema (very minimal) and Other (no evidence of DVT) Neurologic/Psychiatric: positive Mood/affect nml Lab Results 09/05/24 18:10 09/05/24 18:10 Other Labs: Lab Results x24hrs 09/05/24 Range/Units 18:10 WBC 14.3 H (4.8-10.8) x10^3/uL RBC 3.68 L (4.20-5.40) 10^6/uL Hgb 11.3 L (12.0-16.0) g/dL Hct 33.3 L (37.0-47.0) % MCV 90.5 (81.0-99.0) fL MCH 30.7 (27.0-31.0) pg MCHC 33.9 (32.0-36.0) g/dL RDW 13.3 (12.0-15.0) % Plt Count 147 (130-450) 10^3/uL MPV 13.8 H (7.9-10.8) fL Sodium 136 (135-145) mmol/L Potassium 4.0 (3.5-4.5) mmol/L Chloride 106 (101-111) mmol/L Carbon Dioxide 21 (21-32) mmol/L Anion Gap 9.0 (6-13) BUN 14 (6-20) mg/dL Creatinine 0.6 (0.6-1.3) mg/dL Estimated GFR (MDRD) 120 (>89) Glucose 117 H (74-104) mg/dL Calcium 9.1 (8.5-10.3) mg/dL Total Bilirubin 0.2 (0.2-1.0) mg/dL AST 23 (10-42) IU/L ALT 14 (10-60) IU/L Alkaline Phosphatase 108 (42-121) IU/L Total Protein 5.6 L (6.4-8.9) g/dL Albumin 3.1 L (3.2-5.5) g/dL Globulin 2.5 (2.1-4.2) g/dL Albumin/Globulin Ratio 1.2 (1.0-2.2) Assessment/Plan Problem List (1) care and examination of lactating mother: Impression: Doing well, continue routine care. (2) Pre-eclampsia affecting , antepartum: Impression: Labs repeated last night, stable. Will increase labetalol to 200mg BID. Plan for continued BP monitoring today and likely discharge home tomorrow.
[2024-09-06] MEDS: LABETALOL 100 MG TABLET PO SCH (20:51)
[2024-09-06 21:08] VITALS: O2SAT 96
[2024-09-07] MEDS: NIFEdipine ER 30 MG TABLET PO SCH (09:56)
[2024-09-07 10:04] LABS: HCT - HEMATOCRIT 28.7 % (37.0-47.0); HGB - HEMOGLOBIN 9.7 g/dL (12.0-16.0); MEAN CORPUSCULAR HEMOGLOBIN 30.7 pg (27.0-31.0); MEAN CORPUSCULAR HGB CONC 33.8 g/dL (32.0-36.0); MEAN CORPUSCULAR VOLUME 90.8 fL (81.0-99.0); MEAN PLATELET VOLUME 13.1 fL (7.9-10.8); RED BLOOD COUNT 3.16 10^6/uL (4.20-5.40); RED CELL DISTRIBUTION WIDTH 13.6 % (12.0-15.0); WHITE BLOOD COUNT 8.8 x10^3/uL (4.8-10.8)
[2024-09-07 10:21] LABS: ALBUMIN 3.3 g/dL (3.2-5.5); ALBUMIN/GLOBULIN RATIO 1.2 (1.0-2.2); BILIRUBIN,TOTAL 0.3 mg/dL (0.2-1.0); CALCIUM 8.9 mg/dL (8.5-10.3); CREATININE 0.6 mg/dL (0.6-1.3); POTASSIUM 4.3 mmol/L (3.5-4.5)
[2024-09-07] MEDS: VARICELLA VACCINE LIVE/PF 1,350 UNIT/0.5 ML VIAL SUBQ ONE (13:11)
--- NOTE | 2024-09-07 13:24 | Discharge Summary ---
Discharge Summary DIAGNOSES Admission Diagnoses: 29yo at 37.1w Preeclampsia HPI History of Present Illness: 29yo at 37.1w admitted for preeclampsia. HOSPITAL COURSE Hospital Course: 29yo at 37.1w admitted for IOL for preeclampsia. She was given misoprostol and then progressed to 10cm. Uncomplicated . course uncomplicated. She did require increase in labetalol, now labetalol 200mg BID. Nifedipine 30mg XR daily added. She denies preeclampsia symptoms and is recovering well. Asymptomatic anemia due to acute blood loss from delivery, continue vitamins. She will follow up 2d for BP check. and preeclampsia precautions reviewed. ALLERGIES Allergies Allergy/AdvReac Type Severity Reaction Status Date / Time seasonal Allergy Mild Respiratory Uncoded 09/03/24 13:23 MEDICATIONS Ambulatory Orders Medication Instructions Recorded Confirmed [id number] 400 mcg-om3 35 mg-dha 25 1 tab PO DAILY 08/26/24 08/26/24 mg-epa 5 mg-fish oil chewable tablet levothyroxine 100 mcg tablet 100 mcg PO DAILY 08/26/24 08/26/24 (Euthyrox) acetaminophen 500 mg tablet 1,000 mg (2 x 500 mg) PO Q8HR PRN 09/07/24 Mild Pain Or Fever>38c(100.4f) #60 tabs docusate sodium 100 mg capsule 100 mg PO BID 7 days #14 caps 09/07/24 ibuprofen 600 mg tablet 600 mg PO Q6HR PRN Moderate Pain 09/07/24 (Level 4-6) #30 tabs labetalol 100 mg tablet 200 mg (2 x 100 mg) PO BID #60 tabs 09/07/24 nifedipine 30 mg tablet,extended 30 mg PO DAILY #30 tabs 09/07/24 release 24 hr PHYSICAL EXAM AT DISCHARGE General Appearance: positive No acute distress Eyes Bilateral: positive EOMI Respiratory: positive No respiratory distress Cardiovascular: positive Regular rate & rhythm Abdomen: positive Other (Fundus firm) Skin: positive Color nml Extremities: positive Non-tender Neurologic/Psychiatric: positive Oriented x3 LABS 09/07/24 09:56 09/07/24 09:56 FOLLOW UP Follow Up: 2d TIME SPENT Time Spent in Discharge (Minutes): 25 Discharge Plan Discharge Patient Disposition: 01 Home, Self Care Condition: Good Medically Cleared Date:: 09/07/24 Prescriptions: New nifedipine 30 mg Tablet Extended Release 24hr 30 mg PO DAILY Qty: 30 0RF docusate sodium 100 mg Capsule 100 mg PO BID 7 Days Qty: 14 0RF ibuprofen 600 mg Tablet 600 mg PO Q6HR PRN (Reason: Moderate Pain (Level 4-6)) Qty: 30 0RF labetalol 100 mg Tablet 200 mg PO BID Qty: 60 0RF acetaminophen 500 mg Tablet 1,000 mg PO Q8HR PRN (Reason: Mild Pain Or Fever>38c(100.4f)) Qty: 60 0RF Continued levothyroxine [Euthyrox] 100 mcg tablet 100 mcg PO DAILY [id number] oil 400 mcg-35 mg -25 mg-5 mg tablet,chewable 1 tab PO DAILY Activity Restrictions: Activity as Tolerated Activity Restrictions/Additional Instructions: Pelvic rest 6w Diet: Regular Plan of Treatment: Follow up for blood pressure check this week. Print Language: Frisian Patient Instructions: Vaginal After, Depression , Follow-up Care: Loraine Pearce ARNP [Primary Care Provider] - Chelo Dodd MD [Provider Admit Priv/Credential] - 1-2 Days (Follow up as scheduled)
--- NOTE | 2024-09-07 15:12 | Labor Flowsheet ---
Labor Flowsheet Datetime Report Generated by CPN: 09/07/2024 15:11 Datetime: 09/07/2024 12:22 VITAL SIGNS NBP Sys/Lexi/Mean (mmHg): 135 : 74 : 85 Pulse: 85 LaborFlag: Labor Datetime: 09/06/2024 20:43 SpO2 (%): 95 Datetime: 09/05/2024 12:11 MEDICATIONS Cervical Ripening Agents: Cytotec @ Datetime: 09/05/2024 11:00 UTERINE ACTIVITY Monitor Mode: External Frequency (min): 4-9 Quality: Strong Duration (sec): 40-70 Pattern: Normal: <= 5 Contractions in 10 Minutes Resting Tone (Palpate): Relaxed ASSESSMENT A Monitor Mode: Telemetry FHR Baseline Rate : 140 Variability: Moderate 6-25 bpm Accelerations: None Decelerations: Variable Category: Category II Datetime: 09/05/2024 10:48 STAGE 2 Pushing: Coached on Pushing Pushing Position: Pushing with Contractions; Pushing Left Side; Pushing Lithotomy Pushing Progress: Descent with Pushing Stage 2 Comments: push start time 1048 Datetime: 09/05/2024 10:45 FHR Baseline Changes: Return to Previous Baseline Datetime: 09/05/2024 10:38 Patient Position/Activity: Right Tilt Datetime: 09/05/2024 10:13 VAGINAL EXAM Dilatation (cm): 10.0 Effacement (%): 100 Station: 1 Exam by: MO Datetime: 09/05/2024 10:06 Monitor Interventions for FHR: Ultrasound Adjusted Datetime: 09/05/2024 10:00 Epidural Procedure Other: Single Dose Anesthesia Comments: 5cc Datetime: 09/05/2024 09:29 Patient Care Comments: emesis Datetime: 09/05/2024 09:17 Epidural Procedure: Test Dose Datetime: 09/05/2024 09:08 PROCEDURE TIME OUT Procedure Verify: Correct Patient Identity; Correct Side and Site are Marked; Accurate Procedure Co nsent Form; Agreement on Procedure to be Done; Correct Patient Position ANESTHESIA Epidural Positioning: Sitting Datetime: 09/05/2024 08:45 Membranes Ruptured Date/Time: 09/05/2024 08:45 Membranes Rupture Method: Spontaneous Amniotic Fluid Color: Clear Amniotic Fluid Amount: Moderate Vaginal Bleeding: None Datetime: 09/05/2024 08:20 Monitor Interventions for UA: [place] Adjusted Datetime: 09/05/2024 08:07 Pain Assessment Comments: nitrous started Datetime: 09/05/2024 08:00 PAIN Pain Scale: 4 Pain Presence: Intermittent Pain Type: Contraction Pain Location: Back Pain Coping: Crying Datetime: 09/05/2024 07:30 PATIENT CARE Oxygen Method: Room Air Datetime: 09/05/2024 03:59 Stage of : Labor Respirations: 17 Temperature (C): 36.7 Datetime: 09/05/2024 01:59 COMMUNICATION Communication Comments: pt sleeping on arm with BP cuff. will recheck Datetime: 09/04/2024 23:59 Temperature Route: Oral Datetime: 09/04/2024 21:51 Medication Comments: benadryl given as per emar Datetime: 09/04/2024 21:10 Cervix, Position: Posterior Vaginal Exam Comments: fingertip Datetime: 09/04/2024 21:06 Procedures: Bedside Ultrasound Done
== END 2024-09-07 13:30 | disposition home or self-care (01) ==
LOC: WFO 19:52 → FBP 19:54 → INTOOBSV 09-05 12:01
PROVIDERS: ADMIT Obstetrics & Gynecology; ATTEND Obstetrics & Gynecology
DX: O99.824 Streptococcus B carrier state complicating childbirth; O70.0 First degree perineal laceration during delivery; O99.284 Endocrine, nutritional and metabolic diseases complicating childbirth; Z3A.37 37 weeks gestation of pregnancy; Z23 Encounter for immunization; Z37.0 Single live birth; O14.04 Mild to moderate pre-eclampsia, complicating childbirth; O90.81 Anemia of the puerperium; D62 Acute posthemorrhagic anemia; E06.3 Autoimmune thyroiditis